=== PATIENT | female | born 1995 | race Caucasian/White ===

== ENCOUNTER 2018-08-14 12:23 | Emergency (ER) | payer OTHER, SELFPAY ==
[2018-08-14 12:25] VITALS: BP 123/83; PULSE 70; RESP 18; TEMP 36.4; O2SAT 99; BMI 37.0
--- NOTE | 2018-08-14 12:46 | NURSING ---
NO OLD EKG TO OBTAIN.
[2018-08-14 13:02] LABS: Hematocrit 41.6 % (37-47); Hemoglobin 14.2 g/dl (12.0-15.0); Mean Corp Hgb Conc 34.1 g/gl (32-36); Mean Corpuscular Hgb 29.5 pg (27.0-32.0); Mean Corpuscular Volume 86.5 fL (81-99); Mean Platelet Vol. 9.4 fl (6.2-12.0); Platelet Count 233 K/mm3 (150-450); RBC Distribution Width CV 12.9 % (11.6-14.6); RBC Distribution Width SD 41.2 fl (35.1-43.9); Red Blood Count 4.81 M/mm3 (4.2-5.4); White Blood Count 7.2 K/mm3 (4.4-11.0)
[2018-08-14 13:04] LABS: Scan Indicated on CBC? Y/N NO
[2018-08-14 13:10] LABS: Internal QC Validated? YES +Cl - CLEAR BKGD; Pregnancy, Serum, hCG Quali. NEGATIVE Negative
[2018-08-14 13:15] LABS: Anion Gap 4 (5-15); BUN 14 mg/dL (7-18); BUN/Creat Ratio 15.3 RATIO (10-20); Calcium,Total 8.4 mg/dL (8.5-10.1); Chloride 107 mmol/L (98-107); Creatinine, Serum 0.92 mg/dL (0.55-1.02); EST Glomerular Filtration Rate 79 mL/min (>60); Est Glom Filt Rate - Afr Amer 96 mL/min (>60); Estimated Creatinine Clearance 84.11 ml/min; Glucose 95 mg/dL (74-106); Potassium 3.8 mmol/L (3.5-5.1); Sodium Level 139 mmol/L (136-145)
[2018-08-14 14:18] VITALS: BP 114/72; PULSE 64; RESP 15; O2SAT 99
--- NOTE | 2018-08-14 15:34 | ED.DCSUM_ITS ---
History of Present Illness Chief Complaint: Syncope Detail of Chief Complaint: One episode and earlier Informant: Patient Onset: Today, - Context: Onset with activity - On , Sudden Onset - Both episodes Timing: Intermittent Quality: Passed out Location: Work on home today Current Severity: - - Resolved Maximum Severity: Severe Worsened by: Nothing Relieved by: Nothing Associated Symptoms: No prodrome Narrative: Patient is a 23-year-old female whose last normal menstrual period was last month who presents with syncopal episode on and today. She states she was walking towards her truck during her lunch break. The next thing she recalls is waking up on the ground. She denied pain, headache, visual, ocular auditory symptoms. She denied chest discomfort or shortness of breath. She denies abdominal pain. There was no incontinence of urine or stool. She denied biting her tongue. She denied headache. The episode that occurred this morning occurred after rising from her bed. She states she woke up on her bed. She apparently fell backwards. She had no symptoms again. She denies history of PE or DVT and has no risk factors. She is not on hormonal therapy. She denies leg pain, swelling discoloration. There is no history of seizures in the family and she denies history of febrile seizures. Prior similar symptoms: No Recent Illness/Hospitalization: No - Past Medical History (1) Physical exam, pre-employment Status: Acute Past Medical History - Allergies and Home Meds Allergies/Adverse Reactions: Allergies minocycline Allergy (Verified 08/14/18 12:28) Hives Primary Care Physician: Layton Garrido MD [Primary Care Provider] - Past Medical History: None Surgical History: no surgical history Lives: Alone Smoking Status: Current every day smoker Drugs: None Review of Systems General: Denies: Chills, Fever, Malaise, Sweats Eyes: Denies: Visual changes - bilaterally, Blurred Vision - bilaterally, Diplopia ENT: Denies: Bilateral ear pain, Rhinorrhea, Sore throat Cardiovascular: Denies: Chest pain, Palpitations Respiratory: Denies: Dyspnea, Cough, Dyspnea on exertion Gastrointestinal: Denies: Abdominal pain, Nausea, Vomiting, Diarrhea, Melena, Hematochezia Genitourinary: Denies: Dysuria, Hematuria, Frequency Musculoskeletal: Denies: Back pain, Extremity Pain Skin: Denies: Rash, Wounds Neurological: Denies: Headache, Weakness, Numbness Psych: Denies: Depression Hematologic: Denies: Easy bruising, Easy bleeding Allergy: Denies: Uticaria, Swelling of the mouth Physical Exam Vital Signs/Narrative: Vital Signs Temp Pulse Resp BP Pulse Ox 08/14/18 14:18 64 15 114/72 99 08/14/18 12:25 97.5 F L 70 18 123/83 H 99 Inital Vital Signs reviewed: Yes General: Well nourished, Well developed, Obese, No Acute Distress Head: Normocephalic, Atraumatic Eyes: Perrl, EOMI. Negative for: Pale conjunctiva, Scleral icterus, - ENT: Moist mucous membranes, No rhinorrhea, TM's clear Neck: Supple, Nontender, No lymphadenopathy, No JVD Cardiovascular: Regular rate, Regular rhythm, No murmurs, Normal S1, Normal S2 Respiratory: No distress, CTA bilaterally, Chest nontender Abdomen: Soft, Nontender, Nondistended, Normal bowel sounds, No masses Back: Nontender, Normal Inspection. Negative for: CVA tenderness Extremities: Nontender, No edema, - - There is no asymmetry, swelling, discoloration, leg vein distention, palpable cords or tenderness along the distribution of the deep venous system. Skin: Normal color, No rash. Negative for: Cyanosis, Jaundice Neurological: Alert, Oriented x3, Cranial nerves II-XII grossly intact, Normal Strength, Normal Sensation, Normal DTR, Normal Gait Psychological: Normal affect, Normal Mood Diagnostic/Tx/Re-eval Laboratory Results 08/14/18 08/14/18 08/14/18 12:55 12:55 12:55 WBC 7.2 RBC 4.81 Hgb 14.2 Hct 41.6 MCV 86.5 MCH 29.5 MCHC 34.1 RDW 12.9 RDW Differential 41.2 Plt Count 233 MPV 9.4 Sodium 139 Potassium 3.8 Chloride 107 Carbon Dioxide 28.0 Anion Gap 4 L BUN 14 Creatinine 0.92 Estim Creat Clear Calc 84.11 Est GFR (MDRD) Af Amer 96 Est GFR (MDRD) Non-Af 79 BUN/Creatinine Ratio 15.3 Glucose 95 Calcium 8.4 L Serum , Qual NEGATIVE - Rhythm Strip Rhythm Strip: Sinus Rhythm Rate: 72 Ectopy: None - EKG Initial EKG Interpretation: Sinus Rhythm - Ventricular rate is 67. DE interval, QRS duration, QT interval and axis are normal. EKG is normal. - Medical Decision Making Patient presents with 2 syncopal episodes. First was with walking the other was not. Will obtain EKG to look for evidence of dysrhythmia and preexcitation syndrome etc. Blood work was obtained as well including test. Will discuss case with transplant immunologist regarding outpatient versus inpatient work-up. Dr. Yancey asked for a 30-day event monitor. Apparently unable to apply a 30- day event monitor. A 48 Holter monitor was ordered and will be converted to a 30-day event monitor on Thursday. ED Disposition - Plan for ED Patient: Disposition: Home or Assisted Living Diagnosis: Effort syncope Instructions: ED Fainting Unkn Cause Referrals: Layton Garrido MD [Primary Care Provider] - Cam Yancey MD [STAFF PHYSICIAN] - 3-5 Days
[2018-08-14 15:52] VITALS: BP 112/80; PULSE 66; RESP 13; O2SAT 100
== END 2018-08-14 16:53 | disposition home or self-care (01) ==
LOC: ED 16:01 → CVS 16:09 → ED 16:14
PROVIDERS: Emergency Provider Emergency Medicine; Family Provider Family Medicine; PCP Family Medicine
DX: R55 Syncope and collapse (principal); F17.200 Nicotine dependence, unspecified, uncomplicated
CPT/HCPCS: 80048; 84703; 85027; 93005; 99284

== ENCOUNTER → 2018-08-14 16:15 | Outpatient (CLI) | payer OTHER, SELFPAY ==
[2018-08-14 12:25] VITALS: BMI 37.0
== END ==
PROVIDERS: Family Provider Family Medicine; PCP Family Medicine; Visit Provider Internal Medicine Cardiovascular Disease
DX: R55 Syncope and collapse (principal)
CPT/HCPCS: 93225; 93226

== ENCOUNTER → 2018-08-17 14:30 | Outpatient (CLI) | payer OTHER, SELFPAY ==
[2018-08-17 13:07] VITALS: BMI 37.3
[2018-08-17 16:02] LABS: T4 Total, Thyroxin 10.8 ug/dL (4.8-13.9); Thyroid Stim Hormone (TSH) 0.81 uIU/mL (0.358-3.74)
== END ==
PROVIDERS: Family Provider Family Medicine; PCP Family Medicine; Referring Provider Internal Medicine Cardiovascular Disease; Visit Provider Internal Medicine Cardiovascular Disease
DX: R00.2 Palpitations (principal); R53.83 Other fatigue; R55 Syncope and collapse; E28.2 Polycystic ovarian syndrome; G47.19 Other hypersomnia
CPT/HCPCS: 36415; 84436; 84443

== ENCOUNTER → 2018-10-13 19:50 | Outpatient (CLI) | payer OTHER, SELFPAY ==
[2018-08-17 13:07] VITALS: BMI 37.3
== END ==
PROVIDERS: Family Provider Family Medicine; PCP Family Medicine; Referring Provider Internal Medicine Cardiovascular Disease; Visit Provider Internal Medicine Cardiovascular Disease
DX: G47.19 Other hypersomnia (principal); R00.2 Palpitations; R06.83 Snoring; R53.83 Other fatigue; R55 Syncope and collapse
CPT/HCPCS: 95810

== ENCOUNTER → 2018-11-08 07:52 | Outpatient (CLI) | payer OTHER, SELFPAY ==
[2018-11-01 10:49] VITALS: BMI 38.4
--- NOTE | 2018-11-08 10:14 | PFTCOMP ---
COMPLETE PULMONARY FUNCTION TEST INTERPRETATION Brief HPI: Patient is a 23 year old female, currently under the care of myself, who presents to [facility] for complete pulmonary function tests secondary to diagnosis of dyspnea. Respiratory therapist reports good effort and reproducible results. Interpretation: Forced expiration spirometry shows no large airways obstructive ventilatory defect with an FEV1 of 116% predicted. There is no significant bronchodilator response by strict ATS criteria. Spirograms are of good quality and plateau normally. The respiratory flow volume loop shows a normal pattern. Lung volumes by body plethysmography show a normal total lung capacity at 5.29 L, 99% predicted. All other lung volumes are within normal limits. Diffusion capacity by carbon monoxide is slightly reduced at 70% predicted. The airway resistance is normal. No previous pulmonary function tests were available for review. Impression: Isolated reduction diffusion capacity consistent with a possible pulmonary vascular disorder.
== END ==
PROVIDERS: Family Provider Family Medicine; PCP Family Medicine; Referring Provider Nurse Practitioner Acute Care; Visit Provider Nurse Practitioner Acute Care
DX: R06.02 Shortness of breath (principal)
CPT/HCPCS: 94060; 94726; 94729

== ENCOUNTER → 2018-12-01 20:53 | Outpatient (CLI) | payer OTHER, SELFPAY ==
[2018-11-01 10:49] VITALS: BMI 38.4
[2018-11-16 15:22] VITALS: BMI 38.6
== END ==
PROVIDERS: Family Provider Family Medicine; PCP Family Medicine; Referring Provider Nurse Practitioner Acute Care; Visit Provider Nurse Practitioner Acute Care
DX: G47.33 Obstructive sleep apnea (adult) (pediatric) (principal)
CPT/HCPCS: 95811

== ENCOUNTER → 2019-01-18 13:36 | Outpatient (CLI) | payer OTHER, SELFPAY ==
[2019-01-13 06:06] VITALS: BMI 39.9
--- NOTE | 2019-01-18 13:37 | ECHOD_ITS ---
Reason For Study: DYSPNEA Procedure This was a 2D Doppler, Color Flow transthoracic echocardiogram. Exam performed in department. Left Ventricle Normal size and thickness. The estimated ejection fraction is 65 %. Normal diastology for age. No regional wall motion abnormalities noted. Right Ventricle Normal size and thickness. Normal systolic function. Atria Normal left atrium. Normal right atrium. Normal atrial septum. Mitral Valve The mitral valve is structurally normal. No prolapse or stenosis seen. Trivial mitral valve insufficiency. Tricuspid Valve Normal tricuspid valve. Trivial tricuspid valve insufficiency. Right ventricular systolic pressure estimated to be 31 mmHg. Aortic Valve Normal aortic valve. Trisinus/trileaflet aortic valve. Pulmonic Valve Normal pulmonic valve. Great Vessels Normal aortic root. Normal arch. Normal inferior vena cava. Inferior vena cava collapse with sniff. Pericardium/Pleural No pericardial effusion. MMode/2D Measurements & Calculations LVIDd: 4.6 cm IVSd: 0.76 cm Ao root diam: 2.7 cm LVIDs: 3.3 cm LVPWd: 0.69 cm RVDd: 3.1 cm FS: 28.2 % LAV(MOD-bp): 53.1 ml LA A4 area: 19.3 cm2 LA dimension(2D): 3.6 cm LAV(MOD-bp) Indexed: 24.8 ml/m2 LAV(MOD-sp2): 46.1 ml LAV(MOD-sp4): 53.0 ml RA A4 area: 15.2 cm2 Time Measurements MV dec time: 0.19 sec Doppler Measurements & Calculations MV E max jose eduardo: 102.4 cm/sec Lat Peak E' Jose Eduardo: 15.6 cm/sec Med Peak E' Jose Eduardo: 12.1 cm/sec MV A max jose eduardo: 49.5 cm/sec E/E' lat: 6.6 E/E' med: 8.5 MV E/A: 2.1 Ao V2 max: 133.1 cm/sec LV V1 max: 80.5 cm/sec PA V2 max: 106.8 cm/sec Ao max P.1 mmHg LV V1 max P.6 mmHg TR max jose eduardo: 255.2 cm/sec TR max P.1 mmHg Interpretation Summary The estimated ejection fraction is 65 %. Normal diastology for age. Trivial mitral valve insufficiency. Trivial tricuspid valve insufficiency. Right ventricular systolic pressure estimated to be 31 mmHg. There is no comparison study available. Ordering Physician: Cam Yancey Referring Physician: KATALINA JACKSON Performed By: Shana Snow RDCS, RVT
== END ==
PROVIDERS: Family Provider Family Medicine; PCP Family Medicine; Referring Provider Internal Medicine Cardiovascular Disease; Visit Provider Internal Medicine Cardiovascular Disease
DX: R55 Syncope and collapse (principal); R00.2 Palpitations; R06.02 Shortness of breath
CPT/HCPCS: 93306

== ENCOUNTER → 2019-03-28 11:45 | Outpatient (CLI) | payer OTHER, SELFPAY ==
[2019-03-28 11:26] VITALS: BMI 39.9
--- NOTE | 2019-03-28 11:46 | RAD_ITS ---
STUDY: X-RAY CHEST REASON FOR EXAM: Female, 23 years old. Cough and dyspnea. Swollen eyes. TECHNIQUE: Frontal and lateral views of the chest. COMPARISON: February 17, 2017 FINDINGS: Stable mild hyperexpansion. There is no demonstrated pleural abnormality. Normal size heart. Normal mediastinum and brianna. Normal visualized pulmonary arteries. Normal visualized aortic arch and descending thoracic aorta. Normal visualized thoracic spine. Normal visualized ribs, clavicles, and shoulders. There is no demonstrated abnormality of the visualized soft tissue structures of the upper abdomen. RAD/Chest PA and Lateral IMPRESSION: Stable mild hyperexpansion. No acute finding. Electronically Signed: Vernon Lugo MD at 12:09 EST , Service support ,
== END ==
PROVIDERS: Family Provider Family Medicine; PCP Family Medicine; Referring Provider Physician Assistant Surgical; Visit Provider Physician Assistant Surgical
DX: R06.02 Shortness of breath (principal)
CPT/HCPCS: 71046

== ENCOUNTER 2019-06-08 12:05 | Emergency (ER) | payer MEDICAID, SELFPAY ==
[2019-03-28 11:26] VITALS: BMI 39.9
[2019-06-08 12:07] VITALS: BP 127/78; PULSE 75; RESP 17; TEMP 36.7; O2SAT 99; BMI 42.6
[2019-06-08 12:26] LABS: Bedside Glucose 88 mg/dL (70-110)
--- NOTE | 2019-06-08 12:27 | CT_ITS ---
STUDY: CT ABDOMEN AND PELVIS WITH CONTRAST REASON FOR EXAM: Female, 24 years old. PAIN AND BLOATING RADIATION DOSAGE (If Supplied By Facility): CTDIvol = ( 16.59 ) mGy, DLP = ( 1141.33 ) mGycm TECHNIQUE: Transaxial images were obtained from the dome of the diaphragm to the symphysis pubis without oral contrast. IV 100mL Isovue-300 was administered. Sagittal and coronal images were reconstructed. Individualized dose optimization techniques were used for this CT. COMPARISON: None. FINDINGS: The visualized lung bases are unremarkable. The visualized portions of the heart are within normal limits. Normal liver. Normal gallbladder and extrahepatic biliary system. Normal spleen. Normal pancreas. Normal bilateral adrenal glands. Normal right kidney. Normal left kidney. There is a small hiatal hernia. Normal small intestine. Normal colon. The appendix is visualized and appears normal. Normal abdominal aorta. Normal inferior vena cava. Normal retroperitoneum. Normal urinary bladder. Small benign-appearing bilateral inguinal lymph nodes. Normal abdominal wall. There is straightening of the normal lumbar lordosis. CT/Abdomen/Pelvis W IV Cont ONLY IMPRESSION: No acute abnormality is seen. Electronically Signed: Hans Moy, at 14:10 EST , Service support ,
--- NOTE | 2019-06-08 12:28 | ED.VIS.GEN ---
History of Present Illness Chief Complaint: Hypoglycemia Informant: Patient Narrative: Patient states that today when she woke up she was having a hard time waking up. She was very sweaty and her CPAP mask is having a hard time adhering to her. She checked her blood sugar and it was 28. She had something to drink and some bread and at 1130 was 34. Patient is feeling better now. She states that yesterday her blood sugar was 66 when she woke up. She notes that her father and her brother have diabetes. She notes thyroid abnormalities run in her family. She notes a 20 to 25 pound weight gain over the past month. She takes medication for LALO and has PCOS and GERD and IBS. She notes that she has been having some abdominal bloating and upper abdominal discomfort at times. Here in the emergency department initial blood sugar was 88. She denies accidentally taking any medications Past Medical History - Allergies and Home Meds Allergies/Adverse Reactions: Allergies minocycline Allergy (Verified 06/08/19 12:06) Love Primary Care Physician: Layton Garrido MD [Primary Care Provider] - Surgical History: no surgical history Smoking Status: Current every day smoker Review of Systems General: Reports: Malaise, Sweats, - - Weight gain. Denies: Chills, Fever Eyes: Denies: Visual changes - bilaterally, Diplopia ENT: Denies: Rhinorrhea, Sore throat Cardiovascular: Denies: Chest pain, Palpitations Respiratory: Denies: Dyspnea, Cough, Dyspnea on exertion Gastrointestinal: Reports: Abdominal pain. Denies: Nausea, Vomiting, Diarrhea, Melena, Hematochezia Genitourinary: Denies: Dysuria, Hematuria, Frequency Musculoskeletal: Denies: Back pain, Extremity Pain Skin: Denies: Rash, Wounds Neurological: Denies: Headache, Weakness, Numbness Physical Exam Vital Signs/Narrative: Vital Signs Temp Pulse Resp BP Pulse Ox 06/08/19 12:07 98.1 F 75 17 127/78 H 99 Inital Vital Signs reviewed: Yes General: Well nourished, Well developed, No Acute Distress Head: Normocephalic, Atraumatic Eyes: Perrl, EOMI ENT: Moist mucous membranes, No rhinorrhea Neck: Supple, Nontender Cardiovascular: Regular rate, Regular rhythm, No murmurs Respiratory: No distress, CTA bilaterally, Chest nontender Abdomen: Soft, Nontender, Nondistended, Normal bowel sounds Back: Nontender, Normal Inspection Extremities: Nontender, No edema Skin: Normal color, No rash Neurological: Alert, Oriented x3, Cranial nerves II-XII grossly intact, Normal Strength, Normal Sensation Psychological: Normal affect, Normal Mood Diagnostic/Tx/Re-eval - Medical Decision Making CBC CMP lipase TSH urine negative. CT of the abdomen pelvis negative. Patient received fluids. It is my suggestion that she eat small frequent meals and include protein in the diet. She needs to follow-up with her primary care for further evaluation on this. Patient notes understanding the plan. ED Disposition - Plan for ED Patient: Disposition: Home or Assisted Living Diagnosis: Hypoglycemia Instructions: HYPOGLYCEMIA, Non Diabetic Referrals: Layton Garrido MD [Primary Care Provider] - As soon as possible
[2019-06-08 12:36] LABS: Bedside Glucose 84 mg/dL (70-110)
[2019-06-08 12:52] LABS: Bacteria 0 SEEN /hpf (None Seen); Mucous, Urine 0 SEEN /hpf (<or=2+); Red Blood Cells-Urine 0 SEEN /hpf (0-5); Squamous Epithelial Cells - UA 0 SEEN /hpf (5-10); White Blood Cells 0 SEEN /hpf (0-5)
[2019-06-08 12:54] LABS: Absolute Lymphocyte Count 3.03 X10^3/uL (0.83-4.51); Absolute Neutrophil Count 4.9 X10^3/uL (2.0-7.7); Basophil# 0.05 X10^3/uL; Basophil% 0.5 % (0-1); Eosinophil# 0.39 X10^3/uL; Eosinophils% 4.3 % (0-5); Hematocrit 42.6 % (37-47); Hemoglobin 14.2 g/dL (12.0-15.0); Lymphocyte # 3.03 X10^3/ul (4.0); Lymphocyte % 33.2 % (19-41); Mean Corp Hgb Conc 33.3 g/dL (32-36); Mean Corpuscular Hgb 28.9 pg (27.0-32.0); Mean Corpuscular Volume 86.6 fL (81-99); Mean Platelet Vol. 9.3 fl (6.2-12.0); Monocyte# 0.77 X10^3/uL; Monocyte% 8.4 % (0-10); NRBC Flagged by Analyzer 0 % (0-5); Neutrophil # 4.86 X10^3/uL (2.7-7.7); Neutrophil % 53.4 % (47-70); Platelet Count 248 K/mm3 (150-450); RBC Distribution Width CV 12.8 % (11.6-14.6); RBC Distribution Width SD 39.9 fl (35.1-43.9); Red Blood Count 4.92 M/mm3 (4.2-5.4); White Blood Count 9.1 K/mm3 (4.4-11.0)
[2019-06-08 13:05] LABS: Color, Urine Yellow (Yellow); Glucose, Dipstick Normal (Normal); Ketone-Dipstick Negative (Negative); Leukocyte Esterase-Dipstick Negative /ul (Negative); Nitrite-Dipstick Negative (Negative); Occult Blood-Urine Negative /ul (Negative); Protein-Dipstick Negative (Negative); Urine Bilirubin Dipstick Negative (Negative); Urine Clarity Clear (Clear); Urine Urobilinogen Normal (Normal); Urine pH 6.5 (5.0 - 8.0)
[2019-06-08 13:07] VITALS: BP 111/68; PULSE 71; RESP 18; O2SAT 98
[2019-06-08 13:07] LABS: Internal QC Validated? YES +Cl - CLEAR BKGD; Pregnancy, Urine Negative Negative
[2019-06-08 13:20] LABS: Albumin, Serum 3.5 g/dL (3.2-5.0); BUN 17 mg/dL (7-18); BUN/Creat Ratio 18.8 RATIO (10-20); EST Glomerular Filtration Rate 80 mL/min (>60); Est Glom Filt Rate - Afr Amer 97 mL/min (>60); Estimated Creatinine Clearance 85.24 ml/min; Globulin 3.9 g/dL (2.2-4.2); Glucose 73 mg/dL (74-106); Protein, Total 7.4 g/dL (6.4-8.2)
[2019-06-08 13:21] LABS: ALB/GLOB Ratio 0.9 RATIO (0.9-2.4); AST(SGOT) 24 U/L (15-37); Alanine Aminotransfer ALT/SGPT 24 U/L (13-56); Alkaline Phosphatase 100 U/L (45-117); Anion Gap 3 (5-15); Calcium,Total 8.7 mg/dL (8.5-10.1); Chloride 106 mmol/L (98-107); Lipase 158 U/L (73-393); Potassium 4.2 mmol/L (3.5-5.1); Sodium Level 139 mmol/L (136-145); Thyroid Stim Hormone (TSH) 1.34 uIU/mL (0.358-3.74)
--- NOTE | 2019-06-08 13:40 | RAD_ITS ---
STUDY: X-RAY CHEST REASON FOR EXAM: Female, 24 years old. Weakness and hypoglycemia since this morning TECHNIQUE: PA and lateral views of the chest. COMPARISON: Comparison is made with prior study dated March 28, 2018. FINDINGS: The lungs are clear and expanded. Scattered calcified granulomas. There is no demonstrated pleural abnormality. Normal size heart. Normal mediastinum and brianna. Normal visualized pulmonary arteries. Normal visualized aortic arch and descending thoracic aorta. Normal visualized thoracic spine. Normal visualized ribs, clavicles, and shoulders. There is no demonstrated abnormality of the visualized soft tissue structures of the upper abdomen. RAD/Chest PA and Lateral IMPRESSION: Normal x-ray examination of the chest. Electronically Signed: Hans Moy, at 14:00 EST , Service support ,
== END 2019-06-08 14:44 | disposition home or self-care (01) ==
PROVIDERS: Emergency Provider Emergency Medicine; PCP Family Medicine
DX: E16.2 Hypoglycemia, unspecified (principal); E28.2 Polycystic ovarian syndrome; K58.9 Irritable bowel syndrome, unspecified; R63.5 Abnormal weight gain; F41.1 Generalized anxiety disorder; K21.9 Gastro-esophageal reflux disease without esophagitis; F17.200 Nicotine dependence, unspecified, uncomplicated; Z79.899 Other long term (current) drug therapy; Z83.3 Family history of diabetes mellitus
CPT/HCPCS: 71046; 74177; 80053; 81001; 81025; 82962; 83690; 84443; 85025; 99283; A4216

== ENCOUNTER → 2019-07-28 08:55 | Outpatient (CLI) | payer MEDICAID, SELFPAY ==
[2019-01-13 06:06] VITALS: BMI 39.9
[2019-06-10 13:39] VITALS: BMI 42.7
--- NOTE | 2019-07-29 11:31 | PFT ---
INTRODUCTION: The patient is a 24-year-old female that presents for pulmonary function studies secondary to a diagnosis of shortness of breath. Respiratory therapy reports good patient effort. Bronchodilators were used during testing. INTERPRETATION: Forced expiration spirometry demonstrates no evidence of a large airways obstructive ventilatory defect. There was a significant response to aerosolized bronchodilators noted both in FEV1 and FVC. Spirograms are of good quality and plateau normally. Body plethysmography was performed and reveals lung volumes to be within normal limits. Diffusing capacity by single breath CO is also within normal limits. IMPRESSION: Subtle stigmata of small airways disease with significant bronchodilator response.
== END ==
PROVIDERS: Family Provider Family Medicine; PCP Family Medicine; Referring Provider Internal Medicine Critical Care Medicine; Visit Provider Internal Medicine Critical Care Medicine
DX: R06.02 Shortness of breath (principal); E66.9 Obesity, unspecified; G47.33 Obstructive sleep apnea (adult) (pediatric)
CPT/HCPCS: 94060; 94726; 94729

== ENCOUNTER → 2019-10-12 09:53 | Outpatient (CLI) | payer MEDICAID, SELFPAY ==
[2019-10-12 08:07] VITALS: BMI 45.0
[2019-10-12 10:36] LABS: Absolute Lymphocyte Count 2.34 X10^3/uL (0.83-4.51); Basophil# 0.06 X10^3/uL; Basophil% 0.6 % (0-1); Eosinophil# 0.63 X10^3/uL; Eosinophils% 6.6 % (0-5); Hematocrit 42.3 % (37-47); Hemoglobin 13.7 g/dL (12.0-15.0); Lymphocyte # 2.34 X10^3/ul (4.0); Lymphocyte % 24.5 % (19-41); Mean Corp Hgb Conc 32.4 g/dL (32-36); Mean Corpuscular Hgb 28.6 pg (27.0-32.0); Mean Corpuscular Volume 88.3 fL (81-99); Mean Platelet Vol. 9.3 fl (6.2-12.0); Monocyte# 0.55 X10^3/uL; Monocyte% 5.7 % (0-10); NRBC Flagged by Analyzer 0 % (0-5); Neutrophil # 5.96 X10^3/uL (2.7-7.7); Neutrophil % 62.3 % (47-70); Platelet Count 260 K/mm3 (150-450); RBC Distribution Width CV 12.9 % (11.6-14.6); RBC Distribution Width SD 41.4 fl (35.1-43.9); Red Blood Count 4.79 M/mm3 (4.2-5.4); White Blood Count 9.6 K/mm3 (4.4-11.0)
[2019-10-15 03:06] LABS: Alternaria alternata <0.10 kU/L (Class 0); Bermuda Grass 0.28 kU/L (Class 0/I); Bluegrass, Kentucky 1.67 kU/L (Class III); Cat Hair/Dander, Standard <0.10 kU/L (Class 0); D farinae Mite <0.10 kU/L (Class 0); D pteronyssinus 0.11 kU/L (Class 0/I); Dog Epithelia <0.10 kU/L (Class 0); Elm, American White 0.24 kU/L (Class 0/I); Oak, White <0.10 kU/L (Class 0); Plantain, English <0.10 kU/L (Class 0); Ragweed, Short/Common 0.26 kU/L (Class 0/I)
[2019-10-15 08:33] LABS: Mouse Urine <0.10 kU/L (Class 0)
[2019-10-15 20:07] LABS: Aspirgillus flavus Negative (Neg:<1:1); Aspirgillus fumigatus Negative (Neg:<1:1); Aspirgillus niger Negative (Neg:<1:1)
[2019-10-16 09:09] LABS: Immunoglobulin E 103 IU/mL (6-495)
== END ==
PROVIDERS: PCP Family Medicine; Referring Provider Nurse Practitioner Acute Care; Visit Provider Nurse Practitioner Acute Care
DX: R06.02 Shortness of breath (principal)
CPT/HCPCS: 36415; 82785; 85025; 86003; 86606

== ENCOUNTER → 2020-01-25 10:04 | Outpatient (CLI) | payer MEDICAID, SELFPAY ==
[2020-01-13 11:33] VITALS: BMI 45.8
--- NOTE | 2020-01-25 16:55 | STRESSREP ---
Stress Test Report Date: 01-25-2020 Procedure: Exercise tolerance test Indications: Palpitations, shortness of breath/dyspnea, fatigue Consent: Per the patient Procedure: The patient exercised on a Surya protocol for 3 minutes completing stage I achieving a peak heart rate of 137 bpm (70% predicted maximal heart rate) with a peak blood pressure 132/60 mmHg and a peak MET capacity of approximately 4 MET's. The baseline ECG demonstrated normal sinus rhythm. The peak exercise ECG demonstrated no obvious ECG changes. There was a rare PAC during exercise and recovery. The functional capacity was considered decreased. The examination was discontinued secondary to slight chest discomfort, dyspnea, and lightheadedness. Impression: 1. Technically inadequate (percent predicted maximal heart rate less than 85%) exercise tolerance test 2. Peak exercise ECG with with no obvious ECG changes at the heart rate achieved 3. There was a rare PAC during exercise and recovery This note was generated with [employer]Point[employer] software. It may contain incorrect words, spelling, and punctuation that were not noted in checking the note before signing.
== END ==
PROVIDERS: Referring Provider Internal Medicine Cardiovascular Disease; Visit Provider Internal Medicine Cardiovascular Disease
DX: R00.2 Palpitations (principal); R55 Syncope and collapse; G47.33 Obstructive sleep apnea (adult) (pediatric)
CPT/HCPCS: 93017

== ENCOUNTER 2021-01-22 17:22 | Outpatient (CLI) | payer MEDICAID, SELFPAY ==
[2021-01-22] MEDS: 0.9% Saline Lock 10 ML Syringe IV (17:37)
[2021-01-22 17:38] VITALS: BP 136/81; PULSE 98; RESP 18; TEMP 36.9; O2SAT 98; BMI 43.2
[2021-01-22 19:07] VITALS: BP 109/69; PULSE 77; RESP 16; TEMP 36.7; O2SAT 98
[2021-01-22 19:30] VITALS: BP 115/77; PULSE 75; RESP 16; TEMP 36.7; O2SAT 98
== END 2021-01-22 19:33 | disposition home or self-care (01) ==
LOC: MS3OUT 17:22 → MS3 17:23
PROVIDERS: Referring Provider Nurse Practitioner Adult Health; Visit Provider Nurse Practitioner Adult Health
DX: Z23 Encounter for immunization (principal); U07.1 COVID-19
CPT/HCPCS: J7050; M0243; A4216; Q0244

== ENCOUNTER 2021-07-22 17:20 | Emergency (ER) | payer MEDICAID, SELFPAY ==
[2021-07-22 17:21] VITALS: BP 155/78; PULSE 88; RESP 14; TEMP 36.5; O2SAT 100; BMI 46.5
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
[2021-07-22 19:06] VITALS: BP 126/71; PULSE 82; RESP 15; O2SAT 97
== END 2021-07-22 19:07 | disposition home or self-care (01) ==
PROVIDERS: Emergency Provider Emergency Medicine; PCP Family Medicine; Visit Provider Emergency Medicine
DX: S16.1XXA Strain of muscle, fascia and tendon at neck level, initial encounter (principal); S09.90XA Unspecified injury of head, initial encounter; S40.021A Contusion of right upper arm, initial encounter; Y04.8XXA Assault by other bodily force, initial encounter; K58.9 Irritable bowel syndrome, unspecified; M19.90 Unspecified osteoarthritis, unspecified site; K21.9 Gastro-esophageal reflux disease without esophagitis; E66.9 Obesity, unspecified; F32.A Depression, unspecified; F41.9 Anxiety disorder, unspecified; Z79.899 Other long term (current) drug therapy; Z87.891 Personal history of nicotine dependence
CPT/HCPCS: 72050; 99282

== ENCOUNTER → 2021-12-03 | Outpatient (CLI) | payer MEDICAID, SELFPAY ==
--- NOTE | 2021-12-03 18:25 | US_ITS ---
STUDY: SECOND AND THIRD TRIMESTER OBSTETRICAL ULTRASOUND - LIMITED REASON FOR EXAM: Female, 26 years old. VIABILITY- Lower abd pain/ pressure PRIOR ULTRASOUND: None. TECHNIQUE: Transabdominal TECHNICAL QUALITY: Adequate. FINDINGS: There is a single intrauterine fetus. The fetus is in a breech presentation. There is demonstrated cardiac activity with a heart rate of 171 bpm. There is a normal amniotic fluid volume. The largest amniotic fluid pocket measures 4.9 cm. The placenta is anterior in location and is not low lying. There are Grade 1 placental changes. The cervix measures cm in length: 3.7 . BIOMETRY: BPD: 53 mm: 22 weeks, 0 days HC: 205 mm: 22 weeks, 4 days AC: 186 mm: 23 weeks, 3 days FL: 36 mm: 21 weeks, 2 days CI: 76 FL/AC: 19 FL/BPD: 68 HC/AC: 1.1 age by current US: 22 weeks, 2 days. KALIE by current US: 1.1.23. Estimated weight: 509 grams, +/- 76 grams, %. Right ovary is not visualized. Left ovary measures 32 mm. 22mm left ovarian cyst. US/OB Limited With Biometrics IMPRESSION: There is a single live intrauterine with a heart rate of 171 bpm. age by current US: 22 weeks, 2 days. KALIE by current US: 1.1.23. Estimated weight: 509 grams, +/- 76 grams, %. Electronically Signed: Clyde Carballo MD at 19:51 EDT ,
== END | disposition home or self-care (01) ==
LOC: US 18:23
PROVIDERS: PCP Family Medicine; Visit Provider Family Medicine
DX: O99.891 Other specified diseases and conditions complicating pregnancy (principal); Z3A.22 22 weeks gestation of pregnancy; R10.30 Lower abdominal pain, unspecified
CPT/HCPCS: 76816

== ENCOUNTER 2022-01-20 15:00 | Outpatient (CLI) | payer MEDICAID, SELFPAY ==
[2022-01-20 15:58] VITALS: BP 134/71; PULSE 87; TEMP 36.6; O2SAT 99
[2022-01-20 16:01] VITALS: BMI 50.6
[2022-01-20 17:09] VITALS: O2SAT 98
[2022-01-20 17:10] VITALS: BP 129/69; PULSE 83; TEMP 36.4
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
[2022-01-21 10:02] LABS: Kleihauer-Betke Negative
== END 2022-01-20 18:35 | disposition home or self-care (01) ==
LOC: WPOUT 15:08 → WP 15:09
PROVIDERS: Obstetrics & Gynecology; PCP Family Medicine; Visit Provider Advanced Practice Midwife
DX: Z04.3 Encounter for examination and observation following other accident (principal)
CPT/HCPCS: 36415; 59025; 59050; 85460

== ENCOUNTER 2022-03-06 14:00 | Outpatient (CLI) | payer MEDICAID, SELFPAY ==
[2022-03-06] VITALS (10 sets, daily range): BP systolic 115–119; BP diastolic 64–78; PULSE 93–102; TEMP 37.4; O2SAT 97–99; BMI 53.6
[2022-03-06] MEDS: Acetaminophen 500 MG Tablet 1000 MG PO (15:01)
[2022-03-06 15:02] LABS: Hematocrit 33.1 % (37-47); Mean Corp Hgb Conc 33.2 g/dL (32-36); Mean Corpuscular Hgb 28.9 pg (27.0-32.0); Mean Corpuscular Volume 87.1 fL (81-99); Mean Platelet Vol. 9.4 fl (6.2-12.0); Platelet Count 210 K/mm3 (150-450); RBC Distribution Width CV 13.2 % (11.6-14.6); White Blood Count 11.6 K/mm3 (4.4-11.0)
[2022-03-06 15:18] LABS: AST(SGOT) 13 U/L (15-37); Alanine Aminotransfer ALT/SGPT 14 U/L (13-56); EST Glomerular Filtration Rate 104 mL/min (>60); Est Glom Filt Rate - Afr Amer 126 mL/min (>60); Estimated Creatinine Clearance 107.67 ml/min; Uric Acid 3.1 mg/dL (2.6-6.0)
[2022-03-06 15:57] LABS: Protein, Urine (Random) 62.3 mg/dL (<11.9); Protein:Creat Ratio 369 mg/g CRE (0-200)
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
== END 2022-03-06 16:35 | disposition home or self-care (01) ==
LOC: WPOUT 14:04 → WP 14:05
PROVIDERS: PCP Family Medicine; Referring Provider Advanced Practice Midwife; Visit Provider Advanced Practice Midwife
DX: O12.13 Gestational proteinuria, third trimester (principal); O99.213 Obesity complicating pregnancy, third trimester; Z79.2 Long term (current) use of antibiotics; R51.9 Headache, unspecified; E66.9 Obesity, unspecified; Z87.891 Personal history of nicotine dependence; Z3A.35 35 weeks gestation of pregnancy; O99.343 Other mental disorders complicating pregnancy, third trimester; F41.9 Anxiety disorder, unspecified
CPT/HCPCS: 36415; 59025; 59050; 82565; 82570; 84156; 84450; 84460; 84550; 85027; 99218; G0378

== ENCOUNTER 2022-03-10 09:29 | Outpatient (CLI) | payer MEDICAID, SELFPAY ==
[2022-03-10 09:33] VITALS: BMI 54.2
[2022-03-10 09:39] VITALS: TEMP 37.2
[2022-03-10 09:40] VITALS: BP 132/70; PULSE 100; O2SAT 98
[2022-03-10 10:00] VITALS: TEMP 37.2; O2SAT 100
[2022-03-10 10:17] LABS: ROM Internal Control Test YES-OK TO RESULT pt. (Internal QC); ROM Patient Test Negative (Negative)
[2022-03-10 10:43] VITALS: BP 105/58; PULSE 86; TEMP 37.1
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
== END 2022-03-10 10:48 | disposition home or self-care (01) ==
LOC: WPOUT 09:31 → WP 09:32
PROVIDERS: PCP Family Medicine; Referring Provider Obstetrics & Gynecology; Visit Provider Obstetrics & Gynecology
DX: O99.213 Obesity complicating pregnancy, third trimester (principal); E66.01 Morbid (severe) obesity due to excess calories; Z3A.36 36 weeks gestation of pregnancy; Z87.891 Personal history of nicotine dependence; Z79.2 Long term (current) use of antibiotics; O99.343 Other mental disorders complicating pregnancy, third trimester; F41.8 Other specified anxiety disorders
CPT/HCPCS: 59025; 59050; 84112; 99218; G0378

== ENCOUNTER 2022-03-26 13:30 | Inpatient (IN) | payer MEDICAID, SELFPAY ==
[2022-03-26] VITALS (12 sets, daily range): BP systolic 99–133; BP diastolic 49–80; PULSE 77–95; RESP 16–18; TEMP 36.4–36.9; O2SAT 96–100; BMI 55.6
[2022-03-26] MEDS: Lactated Ringers 1,000 ML 999 ML IV (14:02)
[2022-03-26] MEDS: Acetaminophen 500 MG Tablet 1000 MG PO ×2 (14:03→19:53)
[2022-03-26 14:07] LABS: Absolute Lymphocyte Count 2.28 X10^3/uL (0.83-4.51); Absolute Neutrophil Count 11.1 X10^3/uL (2.0-7.7); Basophil# 0.03 X10^3/uL; Basophil% 0.2 % (0-1); Eosinophil# 0.08 X10^3/uL; Eosinophils% 0.6 % (0-5); Hematocrit 33.7 % (37-47); Hemoglobin 11.1 g/dL (12.0-15.0); Lymphocyte # 2.28 X10^3/ul (0.83-4.51); Lymphocyte % 15.8 % (19-41); Mean Corp Hgb Conc 32.9 g/dL (32-36); Mean Corpuscular Hgb 28.2 pg (27.0-32.0); Mean Corpuscular Volume 85.8 fL (81-99); Mean Platelet Vol. 9.6 fl (6.2-12.0); Monocyte# 0.82 X10^3/uL; Monocyte% 5.7 % (0-10); NRBC Flagged by Analyzer 0 % (0-5); Neutrophil # 11.11 X10^3/uL (2.7-7.7); Neutrophil % 77.2 % (47-70); Platelet Count 237 K/mm3 (150-450); RBC Distribution Width CV 13.4 % (11.6-14.6); RBC Distribution Width SD 41.5 fl (35.1-43.9); Red Blood Count 3.93 M/mm3 (4.2-5.4); White Blood Count 14.4 K/mm3 (4.4-11.0)
[2022-03-26 14:17] LABS: Protein, Urine (Random) 17.9 mg/dL (<11.9); Protein:Creat Ratio 534 mg/g CRE (0-200)
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
[2022-03-26 14:26] LABS: Amphetamine Urine VISTA NEGATIVE (<1000 ng/mL); Barbiturate Urine VISTA NEGATIVE (< 200 ng/mL); Benzodiazepine Urine VISTA NEGATIVE (< 200 ng/mL); Cocaine Urine VISTA NEGATIVE (< 300 ng/mL); Ecstacy Urine VISTA NEGATIVE (< 500 ng/mL); Methadone Urine VISTA NEGATIVE (< 300 ng/mL); PCP Urine VISTA NEGATIVE (< 25 ng/mL); THC Urine VISTA NEGATIVE (< 50 ng/mL); Vista UDS pH Range 6
[2022-03-26 14:29] LABS: AST(SGOT) 16 U/L (15-37); Alanine Aminotransfer ALT/SGPT 18 U/L (13-56); Creatinine, Serum 0.72 mg/dL (0.55-1.02); EST Glomerular Filtration Rate 101 mL/min (>60); Est Glom Filt Rate - Afr Amer 122 mL/min (>60); Estimated Creatinine Clearance 104.68 ml/min; Uric Acid 3.8 mg/dL (2.6-6.0)
[2022-03-26] MEDS: Lactated Ringers 1,000 ML 150 ML IV (15:10)
[2022-03-26] MEDS: Sodium Citrate/Citric Acid 30 ML UDC PO (16:00)
[2022-03-26] MEDS: miSOPROStol 200 MCG Tablet 800 MCG RC (17:00)
--- NOTE | 2022-03-26 17:07 | EX.PCM.OBRPT ---
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 She was prepped and draped in the dorsal supine position with a leftward tilt. A Pfannenstiel skin incision was made approximately 2 cm above the symphysis pubis and carried through to underlying layer fascia with the scalpel. The fascia was incised incised in the midline and extended laterally with blunt dissection. The rectus muscles were in the midline and the peritoneum was entered bluntly. The peritoneal incision was stretched and the bladder blade was placed. Willard O retractor was placed in the usual sterile fashion. The uterine incision was made in a low transverse fashion with the scalpel and extended superiorly and inferiorly with blunt dissection. The amniotic membranes were ruptured bluntly and clear amniotic fluid returned. The 's head was brought to the incision in the flexed position and delivered without difficulty. The remainder of the infant was delivered with gentle traction and fundal pressure in the standard fashion. The mouth and nares were bulb suctioned. The cord was clamped and cut as the was stimulated. Cord clamping was not delayed because the was making respiratory effort but was not crying vigorously. The was handed off to the waiting nursing staff. The placenta was delivered with fundal massage and gentle traction in the standard fashion. The uterus was exteriorized and cleared of all clots and debris. The cervix was dilated with a ring forcep. The uterine incision was closed with #1 Vicryl in a running locked fashion. A single [id number] suture was needed in the midline to control bleeding from a sinus. The incision was examined and was found to be hemostatic. The uterus was placed back into the peritoneal cavity and hemostasis was again confirmed. The rectus muscles were examined and any bleeding was Bovie cauterized. The parietal peritoneum was closed with 0 Vicryl suture. Some Ngoc was placed over the rectus muscles. The rectus fascia was examined and any bleeding was Bovie cauterized and the rectus fascia was closed with looped PDS suture in a running standard fashion. The subcutaneous tissue was examining and any bleeding was Bovie cauterized. Ngoc was placed in the subcutaneous tissue. The subcutaneous tissue was reapproximated with 3-0 Vicryl suture. The skin was closed in a subcuticular fashion . I performed the entire procedure with assistance. After Kramer provided tissue retraction and assistance with visualization and fundal pressure for delivery. All sponge, lap, and needle counts were correct. The patient was taken to her room for recovery in a stable condition. Web Site Developer was still attending to the at the conclusion of the surgery and time of this dictation and Apgars were not available. Presentation: Positive for Vertex Amniotic Membrane Rupture Type: Artificial Amniotic Fluid Description: Clear Placental Delivery Description: Expressed Placenta Disposition: [facility] Cord Vessel Description: 3 Vessels Cord Entanglement: None Cord Gases: ABG and VBG Infant A Gender: Female (8 pounds 12 ounces, [place]) Delayed Cord Clamping: No Complications Complications: None
[2022-03-26] MEDS: Ketorolac 30 MG/ML Syringe IV ×2 (17:33→23:11)
[2022-03-26] MEDS: Oxytocin 15 Units/NS 250ml 15 UNITS/250 ML IV.SOLN 83 UNITS IV (17:33)
--- NOTE | 2022-03-26 19:32 | NURSING ---
1925 total ebl in recovery 805- pt not gushing but continuing to ooze; Dr Crowe called and notified urine output 80 in 2 hours, total ebl, and continuing to ooze orders received
[2022-03-26] MEDS: Methylergonovine 0.2 MG/ML Ampul IM (19:39)
[2022-03-26 20:07] LABS: Hematocrit 29.2 % (37-47); Hemoglobin 9.5 g/dL (12.0-15.0); Mean Corp Hgb Conc 32.5 g/dL (32-36); Mean Corpuscular Hgb 28.2 pg (27.0-32.0); Mean Corpuscular Volume 86.6 fL (81-99); Mean Platelet Vol. 9.6 fl (6.2-12.0); Platelet Count 183 K/mm3 (150-450); RBC Distribution Width CV 13.4 % (11.6-14.6); RBC Distribution Width SD 41.5 fl (35.1-43.9); Red Blood Count 3.37 M/mm3 (4.2-5.4); White Blood Count 14.9 K/mm3 (4.4-11.0)
[2022-03-26] MEDS: Lactated Ringers 500 ML IV.SOLN. IV (20:37)
[2022-03-26] MEDS: Lactated Ringers 1,000 ML 100 ML IV (21:56)
[2022-03-26] MEDS: Montelukast 10 MG Tablet PO (21:57)
[2022-03-26] MEDS: Sertraline 100 MG Tablet 200 MG PO (21:57)
[2022-03-26] MEDS: busPIRone 15 MG TABLET 7.5 MG PO (21:57)
[2022-03-27 01:00] VITALS: BP 109/62; PULSE 92; RESP 18; TEMP 36.7; O2SAT 98
[2022-03-27] MEDS: Acetaminophen 500 MG Tablet 1000 MG PO ×4 (01:55→21:38)
[2022-03-27 04:00] VITALS: BP 131/75; PULSE 89; RESP 16; TEMP 36.8; O2SAT 97
[2022-03-27] MEDS: Enoxaparin 40 MG/0.4 ML Syringe SC ×2 (04:02→16:43)
[2022-03-27 04:52] LABS: Hematocrit 25.9 % (37-47); Hemoglobin 8.5 g/dL (12.0-15.0); Mean Corp Hgb Conc 32.8 g/dL (32-36); Mean Corpuscular Hgb 28.5 pg (27.0-32.0); Mean Corpuscular Volume 86.9 fL (81-99); Mean Platelet Vol. 9.7 fl (6.2-12.0); Platelet Count 171 K/mm3 (150-450); RBC Distribution Width CV 13.5 % (11.6-14.6); RBC Distribution Width SD 42.5 fl (35.1-43.9); Red Blood Count 2.98 M/mm3 (4.2-5.4); White Blood Count 10.5 K/mm3 (4.4-11.0)
[2022-03-27] MEDS: Ketorolac 30 MG/ML Syringe IV ×2 (05:29→11:28)
[2022-03-27] MEDS: oxyCODONE 5 MG Tablet PO ×5 (06:56→22:34)
--- NOTE | 2022-03-27 07:55 | PN.OBGYN_ITS ---
Subjective Subjective Pain well controlled. Average lochia now. Had some increased bleeding last night. Has been up to the bathroom and ambulating. Bleeding is average now. Denies any lightheadedness or dizziness when she gets up to ambulate. Denies headache or visual change Objective Data Objective Data Vital Signs: Vital Signs Temp Pulse Resp BP Pulse Ox O2 Del Method 98.3 F 89 16 131/75 H 97 Room Air 03/27/22 04:00 03/27/22 04:00 03/27/22 04:00 03/27/22 04:00 03/27/22 04:00 03/27/22 04:00 Oxygen Delivery Method Room Air Weight: 151.6 kg Body Mass Index (BMI) 55.6 Intake & Output: Intake and Output for Last 24 Hours 03/25/22 03/26/22 03/27/22 23:59 23:59 23:59 Intake Total 3915 / 3915 1603.33 / 1603.33 Output Total 1060 / 1060 1900 / 1900 Balance 2855 / 2855 -296.67 / -296.67 Lab / Micro Data Result Diagrams: 03/27/22 04:30 03/26/22 13:45 Labs: Laboratory Results - last 24 hr 03/26/22 13:35: U Random Total Protein 17.9 H, Urine Creatinine 33.50, Protein/Creatinin Ratio 534 H 03/26/22 13:35: Urine Opiates Screen NEGATIVE, Urine Methadone Screen NEGATIVE, Ur Barbiturates Screen NEGATIVE, Ur Phencyclidine Scrn NEGATIVE, Ur Amphetamines Screen NEGATIVE, MDMA (Ecstasy) Screen NEGATIVE, U Benzodiazepines Scrn NEGATIVE, Urine Cocaine Screen NEGATIVE, U Cannabinoids Screen NEGATIVE, Ur Drug Screen Comment 03/26/22 13:45: WBC 14.4 H, RBC 3.93 L, Hgb 11.1 L, Hct 33.7 L, MCV 85.8, MCH 28.2, MCHC 32.9, RDW Std Deviation 41.5, RDW Coeff of Siva 13.4, Plt Count 237, MPV 9.6, Immature Gran % (Auto) 0.500, Neut % (Auto) 77.2 H, Lymph % (Auto) 15.8 L, [place] % (Auto) 5.7, Eos % (Auto) 0.6, Baso % (Auto) 0.2, Absolute Neuts (auto) 11.1 H, Absolute Lymphs (auto) 2.28, Nucleated RBC % 0 03/26/22 13:45: Blood Type A NEGATIVE, Antibody Screen NEGATIVE 03/26/22 13:45: Creatinine 0.72, Estim Creat Clear Calc 104.68, Est GFR (MDRD) Af Amer 122, Est GFR (MDRD) Non-Af 101, Uric Acid 3.8, AST 16, ALT 18 03/26/22 19:55: WBC 14.9 H, RBC 3.37 L, Hgb 9.5 L, Hct 29.2 L, MCV 86.6, MCH 28.2, MCHC 32.5, RDW Std Deviation 41.5, RDW Coeff of Siva 13.4, Plt Count 183, MPV 9.6 03/27/22 04:30: WBC 10.5, RBC 2.98 L, Hgb 8.5 L, Hct 25.9 L, MCV 86.9, MCH 28.5, MCHC 32.8, RDW Std Deviation 42.5, RDW Coeff of Siva 13.5, Plt Count 171, MPV 9.7 Physical Exam Narrative Awake, alert, no acute distress Abdomen soft, nondistended, nontender Uterus difficult to palpate due to habitus. When I attempted to express that there is no blood return. Incision: Bandages clean dry and intact 1+ DTRs, no clonus Assessment & Plan (1) delivery delivered: PLAN: Postoperative day #1 status post primary section. Moderate acute blood loss anemia. Consistent with hemorrhage. Patient was given Cytotec rectally after delivery for atony without hemorrhage. However she had significant amount of bleeding after surgery. Recheck hemoglobin today at 1 PM and again tomorrow. Patient is tolerating anemia from well now. May consider IV iron.
[2022-03-27] MEDS: Senna/Docusate Sodium 1 Tablet PO (09:21)
[2022-03-27 09:31] VITALS: BP 119/63; PULSE 102; RESP 18; TEMP 36.7; O2SAT 97
[2022-03-27] MEDS: 0.9% Saline Lock 10 ML Syringe IV (11:28)
[2022-03-27 11:47] VITALS: BP 108/70; PULSE 96; RESP 16; TEMP 37.2; O2SAT 97
[2022-03-27 16:44] LABS: Hematocrit 26.7 % (37-47); Hemoglobin 8.8 g/dL (12.0-15.0); Mean Corpuscular Hgb 28.5 pg (27.0-32.0); Mean Corpuscular Volume 86.4 fL (81-99); Mean Platelet Vol. 9.7 fl (6.2-12.0); Platelet Count 179 K/mm3 (150-450); RBC Distribution Width CV 13.8 % (11.6-14.6); RBC Distribution Width SD 42.2 fl (35.1-43.9); Red Blood Count 3.09 M/mm3 (4.2-5.4); White Blood Count 11.6 K/mm3 (4.4-11.0)
[2022-03-27] MEDS: Ibuprofen 600 MG Tablet PO (17:07)
--- NOTE | 2022-03-27 17:10 | NURSING ---
Patient showed this RN a chunk of yellow and bloody phlegm, questioning if it was normal. This RN noted that it looked like normal phlegm that had old blood dried to it. Patient reports she has nasal drainage from seasonal congestion. This RN explained that not being able to take full deep breaths during her surgery and afterwards due to pain could have caused the patient to retain more secretions than normal and can now begin to cough them up. Phlegm size was no more than the size of a kidney marcano. This RN will ook for more noted drainage from the patient.
[2022-03-27 17:12] VITALS: BP 116/57; RESP 16; TEMP 36.7; O2SAT 99
[2022-03-27 21:30] VITALS: BP 112/62; PULSE 96; RESP 16; TEMP 36.7; O2SAT 99
[2022-03-27] MEDS: Montelukast 10 MG Tablet PO (21:39)
[2022-03-27] MEDS: busPIRone 15 MG TABLET 7.5 MG PO (21:40)
[2022-03-27] MEDS: Sertraline 100 MG Tablet 200 MG PO (21:43)
[2022-03-28] MEDS: Ibuprofen 600 MG Tablet PO ×3 (00:59→13:18)
[2022-03-28 02:00] VITALS: BP 117/65; PULSE 96; RESP 16; TEMP 36.2; O2SAT 94
[2022-03-28] MEDS: Acetaminophen 500 MG Tablet 1000 MG PO ×3 (03:23→15:27)
[2022-03-28] MEDS: Enoxaparin 40 MG/0.4 ML Syringe SC (04:18)
[2022-03-28 04:40] LABS: Hematocrit 26.7 % (37-47); Hemoglobin 8.5 g/dL (12.0-15.0); Mean Corp Hgb Conc 31.8 g/dL (32-36); Mean Corpuscular Hgb 28.5 pg (27.0-32.0); Mean Corpuscular Volume 89.6 fL (81-99); Mean Platelet Vol. 9.4 fl (6.2-12.0); Platelet Count 187 K/mm3 (150-450); RBC Distribution Width CV 13.8 % (11.6-14.6); RBC Distribution Width SD 44.1 fl (35.1-43.9); Red Blood Count 2.98 M/mm3 (4.2-5.4); White Blood Count 10.8 K/mm3 (4.4-11.0)
[2022-03-28 07:41] VITALS: BP 119/72; PULSE 91; RESP 18; TEMP 36.8; O2SAT 99
[2022-03-28] MEDS: oxyCODONE 5 MG Tablet PO ×2 (07:48→17:37)
[2022-03-28] MEDS: Senna/Docusate Sodium 1 Tablet PO (07:49)
--- NOTE | 2022-03-28 08:55 | PCM.DC.SUM ---
Providers Date of Admission: 03/26/22 Primary Care Physician: Dr. Layton Garrido MD Reason For Visit: PRIMARY CSECTION Diagnosis Discharge Diagnosis (1) delivery delivered: Status: Acute Code(s): O82 - Encounter for delivery without indication (2) BMI 50.0-59.9, adult: Status: Acute Code(s): Z68.43 - Body mass index [BMI] 50.0-59.9, adult (3) Maternal obesity syndrome in third trimester: Status: Acute Code(s): O99.213 - Obesity complicating , third trimester Medications at Discharge Home Medications sertraline 100 mg tablet 200 mg PO DAILY depression 01/13/20 buspirone 7.5 mg tablet 7.5 mg PO QHS Check with primary doctor 07/13/20 vitamins-iron fumarate 65 mg iron-folic acid 1 mg tablet 1 tab PO DAILY 03/26/22 oxycodone 5 mg tablet 5 - 10 mg PO Q4H PRN PRN Pain Score 4-10 5 days #20 tabs 03/28/22 Hospital Course Operations section Summary of Care Provided Hospital Course: Patient here for scheduled primary section. Hospital course uneventful. Physical Exam Narrative Patient seen at bedside. Just got out of shower. Feeling good. Pain controlled with PO medications. Ambulating and voiding without difficulty. Denies headache, dizziness, SOB or CP. with support. Desires discharge home later tonight. Dressing is dry and intact. Const alert and no apparent distress General Appearance: cooperative and comfortable Exam Limitations: no limitations HEENT normocephalic Eyes General Eye: normal appearance of both eyes Neck full ROM General: normal visual inspection Chest Chest: symmetrical chest wall rise Resp normal respiratory effort and normal air movement Effort and Inspection: symmetric chest movement Auscultation: clear to auscultation bilaterally Cardio regular rate and regular rhythm GI normal to inspection, nondistended, normoactive bowel sounds Back/Spine normal ROM Extremity full ROM and no calf tenderness General Extremity: normal exam except as noted Skin no rashes or lesions noted Neuro CN's II-XII intact bilaterally Psych mental status grossly normal Weight / BMI Weight Weight: 334 lb 3.532 oz Body Mass Index (BMI) 55.6 ABG / Lab / Microbiology Data Result Diagrams: 03/28/22 04:16 03/26/22 13:45 Laboratory: Laboratory Results - last 24 hr 03/27/22 16:00: WBC 11.6 H, RBC 3.09 L, Hgb 8.8 L, Hct 26.7 L, MCV 86.4, MCH 28.5, MCHC 33.0, RDW Std Deviation 42.2, RDW Coeff of Siva 13.8, Plt Count 179, MPV 9.7 03/28/22 04:16: WBC 10.8, RBC 2.98 L, Hgb 8.5 L, Hct 26.7 L, MCV 89.6, MCH 28.5, MCHC 31.8 L, RDW Std Deviation 44.1 H, RDW Coeff of Siva 13.8, Plt Count 187, MPV 9.4 D/C Instructions Discharge Diet: No restrictions Discharge Activity: May Shower May resume sexual activity in: 6-8 weeks Weight Bearing Status: Weight bearing as tolerated Call your doctor if your incision/area has: Continuous Slow Oozing, Sudden Increased Bleeding, Increased Pain/ Swelling, Increased Redness, Foul Smelling Discharge and Swelling at the incision site Call your doctor if you observe: Fever of 101 or Higher, Numbness or Tingling, Inability to urinate, Inability to have a bowel movement, Using more than 1 pad per hour, Shortness of breath, Dizziness, Chest pain, Calf discomfort and Uncontrolled pain Change Dressing in: leave in place till F/U Remove Dressing in: leave in place till F/U Cleanse incision/area with: Do not get Incision Wet Please Follow Up With: Lesley Crowe MD When: 1 week for incision check- Meaningful Use Info Meaningful Use Diagnoses (Choose all that apply): None applicable Discharge Plan Admission Admit Date/Time: 03/26/22 13:30 Primary Reason for Your Visit: Primary section Attending Provider: Lesley Crowe Primary Care Provider: Layton Garrido Discharge Orders/Prescriptions Prescriptions: New oxycodone 5 mg Tablet 5 - 10 mg PO Q4H PRN PRN (Reason: Pain Score 4-10) 5 Days Qty: 20 0RF Continued buspirone 7.5 mg tablet 7.5 mg PO QHS sertraline 100 mg tablet 200 mg PO DAILY vit-iron fum-folic ac 65 mg iron- 1 mg Tablet 1 tab PO DAILY Discontinued cholecalciferol (vitamin D3) 50 mcg (2,000 unit) capsule 50 mcg PO DAILY famotidine 20 mg Tablet 20 mg PO DAILY montelukast 10 mg tablet 10 mg PO QPM loratadine 10 mg capsule 10 mg PO QDAY Referrals / Follow Up: Layton Garrido MD [Primary Care Provider] - Disposition Disposition (needs filled in before D/C Order can be placed): Home, Self Care
[2022-03-28] MEDS: Ferrous Sulfate 325 MG Tablet PO (11:45)
[2022-03-28 15:33] VITALS: BP 122/62; PULSE 100; RESP 18; TEMP 36.7; O2SAT 97
== END 2022-03-28 19:30 | disposition home or self-care (01) | DRG 540 ==
PROVIDERS: Admitting Provider Obstetrics & Gynecology; PCP Family Medicine; Referring Provider Obstetrics & Gynecology; Visit Provider Obstetrics & Gynecology
DX: O99.214 Obesity complicating childbirth (principal); O32.4XX0 Maternal care for high head at term, not applicable or unspecified; O36.63X0 Maternal care for excessive fetal growth, third trimester, not applicable or unspecified; O72.1 Other immediate postpartum hemorrhage; E66.01 Morbid (severe) obesity due to excess calories; O99.72 Diseases of the skin and subcutaneous tissue complicating childbirth; L40.50 Arthropathic psoriasis, unspecified; O99.62 Diseases of the digestive system complicating childbirth; K58.9 Irritable bowel syndrome, unspecified; K21.9 Gastro-esophageal reflux disease without esophagitis; O99.284 Endocrine, nutritional and metabolic diseases complicating childbirth; E28.2 Polycystic ovarian syndrome; O99.354 Diseases of the nervous system complicating childbirth; G47.33 Obstructive sleep apnea (adult) (pediatric); O99.52 Diseases of the respiratory system complicating childbirth; J45.909 Unspecified asthma, uncomplicated; O99.344 Other mental disorders complicating childbirth; F32.A Depression, unspecified; F41.9 Anxiety disorder, unspecified; O99.334 Smoking (tobacco) complicating childbirth; F17.210 Nicotine dependence, cigarettes, uncomplicated; Z3A.38 38 weeks gestation of pregnancy; Z37.0 Single live birth
CPT/HCPCS: 36415; 59050; 80307; 82565; 82570; 84156; 84450; 84460; 84550; 85025; 85027; 86850; 86900; 86901; 99218; J7120; A4216; G0378